=== PATIENT | female | born 1990 | race Caucasian/White ===

== ENCOUNTER → 2017-10-06 08:58 | Outpatient (CLI) | payer OTHER ==
[~2017-10-06 08:58] MED LIST: CELEBREX100 MG PO; DIAZEPAM2 MG PO; INTESTINEX1 CAP PO; METFORMIN HCL500 MG; PROTONIX40 MG PO; SKELAXIN800 MG PO
== END | disposition home or self-care (01) ==
LOC: LAB 08:58
DX: Z34.01 Encounter for supervision of normal first pregnancy, first trimester (principal); R30.0 Dysuria; R53.81 Other malaise; R10.2 Pelvic and perineal pain

== ENCOUNTER → 2017-10-10 14:48 | Outpatient (CLI) | payer OTHER ==
[~2017-10-10 14:48] MED LIST changes: +FOLIC ACID0.4 MG PO; +HUMULIN N100 UNIT/2 IM; +HUMULIN R500 UNIT/2 SQ
== END | disposition home or self-care (01) ==
LOC: LAB 14:48
DX: N91.2 Amenorrhea, unspecified (principal)

== ENCOUNTER 2017-10-12 06:35 | Emergency (ER) | payer OTHER ==
[~2017-10-12] VITALS: Ht 160 cm; Wt 104.3 kg
[~2017-10-12 06:35] MED LIST changes: -FOLIC ACID0.4 MG PO; -HUMULIN N100 UNIT/2 IM; -HUMULIN R500 UNIT/2 SQ
[2017-10-12] MEDS ORDERED: HUMULIN R500 UNIT/2 SQ (06:43)
[2017-10-12] MEDS ORDERED: HUMULIN N100 UNIT/2 IM (06:43)
[2017-10-12] MEDS ORDERED: FOLIC ACID0.4 MG PO (06:43)
== END 2017-10-12 11:00 | disposition home or self-care (01) ==
LOC: ER 06:35
DX: O07.1 Delayed or excessive hemorrhage following failed attempted termination of pregnancy (principal); Z34.01 Encounter for supervision of normal first pregnancy, first trimester

== ENCOUNTER 2017-10-13 06:00 | Day surgery (SDC) | payer OTHER ==
[~2017-10-13 06:00] MED LIST changes: +FOLIC ACID0.4 MG PO; +HUMULIN N100 UNIT/2 IM; +HUMULIN R500 UNIT/2 SQ
== END 2017-10-13 17:20 | disposition home or self-care (01) ==
LOC: CIR.AMB 06:00
DX: O02.1 Missed abortion (principal)

== ENCOUNTER → 2017-10-19 12:51 | Outpatient (CLI) | payer OTHER ==
[~2017-10-19] VITALS: Ht 152.4 cm; Wt 104.3 kg
== END | disposition home or self-care (01) ==
LOC: PPHC 12:51
DX: E10.69 Type 1 diabetes mellitus with other specified complication (principal)

== ENCOUNTER → 2017-10-24 11:00 | Outpatient (CLI) | payer OTHER | END | disposition home or self-care (01) | LOC: PPHC 11:00 → NUTRICION 11:00 | DX: E11.9 Type 2 diabetes mellitus without complications (principal); E66.8 Other obesity ==

== ENCOUNTER 2018-01-30 13:16 | Outpatient (CLI) | payer OTHER ==
[~2018-01-30 13:16] MED LIST changes: -LANTUS SOL100 UNIT/1
[2018-01-30] MEDS ORDERED: LANTUS SOL100 UNIT/1 (13:43)
== END 2018-01-30 13:25 | disposition home or self-care (01) ==
LOC: LAB 13:16
DX: N39.0 Urinary tract infection, site not specified (principal); R82.79 Other abnormal findings on microbiological examination of urine

== ENCOUNTER → 2018-01-30 | Outpatient (CLI) | payer OTHER ==
[~2018-01-30] MED LIST changes: +LANTUS SOL100 UNIT/1
== END | disposition home or self-care (01) ==
LOC: PPHC 12:28
DX: K52.89 Other specified noninfective gastroenteritis and colitis (principal)

== ENCOUNTER → 2018-03-05 07:43 | Outpatient (CLI) | payer OTHER ==
[~2018-03-05 07:43] MED LIST changes: +LANTUS SOL100 UNIT/1
== END | disposition home or self-care (01) ==
LOC: LAB 07:43
DX: E11.65 Type 2 diabetes mellitus with hyperglycemia (principal)

== ENCOUNTER 2018-05-17 14:22 | Outpatient (CLI) | payer OTHER | END 2018-05-17 14:39 | disposition home or self-care (01) | LOC: RAD 14:22 | DX: M25.511 Pain in right shoulder (principal) ==

== ENCOUNTER 2018-08-01 10:55 | Outpatient (CLI) | payer OTHER | END 2018-08-01 11:35 | disposition home or self-care (01) | LOC: LAB 10:55 | DX: E78.49 Other hyperlipidemia (principal); E11.9 Type 2 diabetes mellitus without complications ==

== ENCOUNTER → 2020-07-02 13:00 | Outpatient (CLI) | payer OTHER ==
[~2020-07-02 13:00] MED LIST changes: +DICY20TA PO; +HUMALOG100 UNIT/1; +INDERAL LA80 MG; +MOTRIN PM CAPL1 EACH PO; +NEURONTIN300 MG PO; +PROTONIX
== END | disposition home or self-care (01) ==
LOC: PPH VACUNA 13:00
DX: Z23 Encounter for immunization (principal)

== ENCOUNTER → 2020-07-23 06:18 | Outpatient (CLI) | payer OTHER | END | disposition home or self-care (01) | LOC: LAB 06:18 | PROVIDERS: ATTEND General Practice | DX: N39.0 Urinary tract infection, site not specified (principal); E11.9 Type 2 diabetes mellitus without complications; E03.8 Other specified hypothyroidism; I10 Essential (primary) hypertension; E78.49 Other hyperlipidemia; Z00.00 Encounter for general adult medical examination without abnormal findings; E53.8 Deficiency of other specified B group vitamins ==

== ENCOUNTER 2022-06-23 12:11 | Outpatient (CLI) | payer OTHER | END 2022-06-23 12:23 | disposition home or self-care (01) | LOC: TOM 12:11 | DX: R91.8 Other nonspecific abnormal finding of lung field (principal) ==

== ENCOUNTER 2022-08-30 19:23 | Inpatient (IN) | payer OTHER ==
[~2022-08-30] VITALS: Ht 157.5 cm; Wt 111.1 kg
--- NOTE | 2022-08-30 19:44 | NUR ---
PACIENTE ALERTA Y ORIENTADA POR YARIEL. REFIERE REFERIDA POR DR ANGELICA JOYNER PARA HOSPITALIZACION PORQUE LA MISMA REFIERE FUE OPERADA Y NO TOLERA ALIMENTOS DESDE ENTONCES Y ESTA CON NAUSEAS, VOMITOS Y DEBILIDAD. REFIERE ESTRENIMIENTO HACEN 15 ORTEGA.
== END 2022-09-07 21:47 | disposition home or self-care (01) | DRG 392 ==
LOC: ER 19:23 → MEDI 20:33
PROVIDERS: ADMIT Internal Medicine; ATTEND Internal Medicine
PROC: 02HV33Z Insertion of Infusion Device into Superior Vena Cava, Percutaneous Approach (ICD-10-PCS; principal; 2022-09-01)
PROC: 0DJ08ZZ Inspection of Upper Intestinal Tract, Via Natural or Artificial Opening Endoscopic (ICD-10-PCS; 2022-09-06)
DX: K52.89 Other specified noninfective gastroenteritis and colitis (principal); R13.19 Other dysphagia; R11.2 Nausea with vomiting, unspecified; E86.0 Dehydration; M62.830 Muscle spasm of back; E11.9 Type 2 diabetes mellitus without complications; Z79.4 Long term (current) use of insulin; F43.20 Adjustment disorder, unspecified; Z20.822 Contact with and (suspected) exposure to COVID-19; Z98.84 Bariatric surgery status

== ENCOUNTER 2022-09-21 08:47 | Inpatient (IN) | payer OTHER ==
[~2022-09-21] VITALS: Ht 160 cm; Wt 94.8 kg
--- NOTE | 2022-09-21 09:21 | NUR ---
SE RECIBE PTE ALERTA Y ACTIVA X3 PTE REFIERE PRESENTAR NAUSEA , VOMITOS X10 ENTYRE LA TARDE DE CHANO Y LA MANANA DE HOY.PTE ES POST OPERADA POR L[facility] CIRULAIO GENERAL. SE MONITOREA S/V Y SE UBICA PTE SE TOSHA DX Y SE REFLEJA 317MG/DL
--- NOTE | 2022-09-21 10:26 | NUR ---
SE LE ORIENTA A PACIENTE SOBRE LAS ORDENES MEDICAS, REFIERE ENTEDER LAS MISMAS. SE CANALIZA Y SE LE COLOCA IVF'S, SE LE JASON LAS MUETRAS Y SE LE ADMINISTRAN LOS MEDICAMENTOS CALEB LAS ORDENES MEDICAS.
== END 2022-09-25 13:41 | disposition home or self-care (01) | DRG 639 ==
LOC: ER 08:47 → SEC-K 20:11 → MEDJ 09-22 15:40
PROVIDERS: ADMIT Internal Medicine; ATTEND Internal Medicine
PROC: BW21ZZZ Computerized Tomography (CT Scan) of Abdomen and Pelvis (ICD-10-PCS; principal; 2022-09-21)
DX: E11.10 Type 2 diabetes mellitus with ketoacidosis without coma (principal); E86.0 Dehydration; E87.6 Hypokalemia; Z79.4 Long term (current) use of insulin; Z98.84 Bariatric surgery status; Z20.822 Contact with and (suspected) exposure to COVID-19

== ENCOUNTER 2023-11-02 07:31 | Outpatient (CLI) | payer OTHER | END 2023-11-02 07:47 | disposition home or self-care (01) | LOC: SONOGRAMA 07:31 | PROVIDERS: ATTEND Pediatrics | DX: R10.11 Right upper quadrant pain (principal) ==

== ENCOUNTER 2024-08-16 09:28 | Emergency (ER) | payer OTHER ==
[~2024-08-16] VITALS: Ht 160 cm; Wt 66.2 kg
[2024-08-16] MEDS ORDERED: MECLIZINE HCL 25 MG TABLET PO STA (11:05)
[2024-08-16] MEDS ORDERED: DEXAMETHASONE SODIUM PHOSPHATE 4 MG/ML VIAL IV STA (11:05)
== END 2024-08-16 13:28 | disposition home or self-care (01) ==
LOC: ER 09:30
DX: O26.899 Other specified pregnancy related conditions, unspecified trimester (principal); R42 Dizziness and giddiness; O24.119 Pre-existing type 2 diabetes mellitus, in pregnancy, unspecified trimester; Z79.4 Long term (current) use of insulin; Z88.8 Allergy status to other drugs, medicaments and biological substances

== ENCOUNTER 2024-08-31 23:26 | Emergency (ER) | payer OTHER ==
[~2024-08-31] VITALS: Ht 160 cm; Wt 64.0 kg
[2024-08-31] MEDS ORDERED: PRENA1 CHEW TA1.4 MG (23:41)
[2024-09-01 00:28] LABS: HEMATOCRIT 37.5 % (36.0-45.00); HEMOGLOBIN 12.7 g/dL (12.0-15.00); MEAN CELL VOLUME 87.8 fL (80.00-100.00); MEAN CORPUSCULAR HEMOGLOBIN 29.8 pg (27.00-32.0); MEAN CORPUSCULAR HGB CONC 33.9 g/dl (32.0-36.0); PLATELET COUNT 244 K/uL (150-450); RED BLOOD COUNT 4.26 M/uL (4.00-6.00); RED CELL DISTRIBUTION WIDTH 12.7 % (11.5-14.5)
[2024-09-01 01:32] LABS: URINE APPEARANCE Cloudy; URINE BILIRRUBIN Small (NEGATIVE); URINE BLOOD Large; URINE COLOR Orange; URINE GLUCOSE Negative (NEGATIVE); URINE LEUKOCYTE Moderate; URINE NITRATE Negative
[2024-09-01 01:36] LABS: URINE EPITHELIAL CELLS 12.3 uL (0.0-38.8); URINE WBC 500.7 uL (0.0-23.2)
[2024-09-01 01:45] LABS: URINE CAST 0.15 uL (0.0-1.40); URINE KETONE 40 (NEGATIVE); URINE PROTEIN 100 (NEGATIVE); URINE RBC > 10558.9 uL (0.0-20.8)
[2024-09-01] MEDS ORDERED: KETOROLAC TROMETHAMINE 60 MG VIAL IM ONE (04:30)
== END 2024-09-01 04:35 | disposition home or self-care (01) ==
LOC: ER 23:28
PROVIDERS: General Practice
DX: O20.8 Other hemorrhage in early pregnancy (principal); Z3A.01 Less than 8 weeks gestation of pregnancy; Z79.84 Long term (current) use of oral hypoglycemic drugs; Z88.6 Allergy status to analgesic agent; Z88.8 Allergy status to other drugs, medicaments and biological substances